=== PATIENT | male | born 1980 | race Caucasian/White ===

== ENCOUNTER 2016-10-11 14:08 | Emergency (ER) | payer OTHER, BC ==
[~2016-10-11] VITALS: Ht 180.3 cm; Wt 100.0 kg
[~2016-10-11 14:08] MED LIST: MULT-506 PO
[2016-10-11 14:11] VITALS: TEMP 36.9; Ht 180.3 cm; Wt 100.0 kg
[2016-10-11] MEDS ORDERED: VALA500T60 PO (14:22)
[2016-10-11] MEDS ORDERED: IBUPROFEN 200 MG TAB PO STA (14:54)
--- NOTE | 2016-10-11 15:48 | EMERGENCY ROOM VISIT NOTE ---
History Report prepared by Gayathri: Lulu Johnson Under the Supervision of: Dr. Osman Mcfarland M.D. First contact with patient: 14:18 Chief Complaint: DIZZY Stated Complaint: HEAD INJURY/ GOLF BALL Nursing Triage Summary: Dizzy after being struck by a golf ball in the back of his head. History of Present Illness The patient is a 36 year old male who presents to the Emergency Room with complaints of an episode of a head injury occurring 1.5 hours [employer]. The patient works on the [place]. He was hit in the left occiput by a golf course. He states that it was a azam-off that traveled about 120-150 yards before hitting the ground once, bouncing, and hitting him in the head. He denies any LOC. The patient states that immediately after the injury he lay flat on the ground with his hands on his head for about 5 minutes. He had throbbing pain in his head. After about 5 minutes he developed dizziness and started to feel "fuzzy and foggy." These symptoms were worsened with movement. He also had some nausea. The patient was brought to the ED by ambulance. Since arriving in the ED his nausea has resolved and his other symptoms have greatly improved. He denies any headache, changes in vision or hearing, abdominal pain, and vomiting. The patient rates his pain as a 2/10 in severity. He does not take any blood thinners. He has a history of 2-3 sports-related concussions from head-on collisions in soccer, with the most recent one occurring in 1998. Source of History: patient Onset: 1.5 hours [employer] AP[employer]ENTICE Position: head Symptom Intensity: 2/10 Quality: other (throbbing) Timing: other (episode) Modifying Factors (Worsening): movement Modifying Factors (Relieving): other (time) Associated Symptoms: + nausea, No LOC, No headache, No vomiting, No abdominal pain Note: Pt notes dizziness. Review of Systems See HPI for pertinent positives and negatives. A total of ten systems were reviewed and were otherwise negative. Past Medical & Surgical Medical Problems: (1) Hx of concussion Family History Diabetes mellitus Social History Smoking Status: Never Smoker Occupation Status: employed Current/Historical Medications Scheduled PRN Valacyclovir (Valtrex), 1 TAB PO BID PRN for COLD SORES Allergies Coded Allergies: Morphine (Verified Adverse Reaction, Unknown, NAUSEA, 2/5/10) Physical Exam Vital Signs Date Time Temp Pulse Resp B/P (MAP) Pulse Ox O2 Delivery O2 Flow Rate FiO2 10/11/16 16:30 68 18 130/90 99 10/11/16 14:39 72 20 122/92 98 Room Air 10/11/16 14:11 36.9 62 20 150/91 99 Room Air Physical Exam GENERAL: Awake, alert, appears moderately uncomfortably but in no acute distress HENT: Normocephalic. Mild tenderness to the left lateral occiput without induration or hematoma. Oropharynx unremarkable. Mucous membranes are dry. EYES: Normal conjunctiva. Sclera non-icteric. NECK: Supple. No nuchal rigidity. FROM. No JVD. RESPIRATORY: Clear to auscultation. CARDIAC: Regular rate, normal rhythm. Extremities warm and well perfused. Pulses equal. ABDOMEN: Soft, non-distended. No tenderness to palpation. No rebound or guarding. No masses. RECTAL: Deferred. MUSCULOSKELETAL: Chest examination reveals no tenderness. The back is symmetrical on inspection without obvious abnormality. There is no CVA tenderness to palpation. No joint edema. LOWER EXTREMITIES: Calves are equal size bilaterally and non-tender. No edema. No discoloration. NEURO: Normal sensorium. No sensory or motor deficits noted. SKIN: No rash or jaundice noted. Medical Decision & Procedures Medications Administered Medications (Trade) Dose Ordered Sig/Toy Route Start Time Stop Time Status Last Admin Dose Admin Ibuprofen (Advil Tab) 800 mg NOW STAT PO 10/11/16 14:54 10/11/16 14:55 DC 10/11/16 15:19 800 MG ED Course 1420: The patient was evaluated in room B2. A complete history and physical exam was performed. 1454: Ibuprofen 800 mg PO 1604: I reassessed the patient at this time. He is feeling better and resting comfortably. I discussed the results and treatment plan with the patient. I answered all pertaining questions that he had. He expressed understanding and verbalized agreement. The patient will be discharged home. Medical Decision I reviewed the patient's past medical history, medications, and the nursing notes as described above. Differential diagnoses includes mild concussion, dehydration, vs less likely intracranial bleed. Patient is a 36-year-old gentleman previously healthy presents to the emergency department after being struck in head with a golf ball after he had bounced from a T-off. Subsequently had headache and nausea but no vomiting. Denies LOC. Arrives to the emergency department uncomfortable appearing but in no acute distress. Afebrile and vital signs stable. Neuro intact. On exam no signs of head trauma such as hematoma or bleeding. Per head CT rule no indication for CT imaging. However discussed with patient and if and offered CT if concerned. She preferred or no imaging and oriented like he was improving. Additionally offered IV hydration for her relief however patient felt he could take oral hydration and oral medication. Considering ICH unlikely in this setting patient given ibuprofen by mouth hydration with improvement in his symptoms. Plan for follow-up [facility]. Concussion instructions given. Patient agreeable with plan and DC'd per [facility]. Impression Primary Impression: Concussion Scribe Attestation The scribe's documentation has been prepared under my direction and personally reviewed by me in its entirety. I confirm that the note above accurately reflects all work, treatment, procedures, and medical decision making performed by me. Departure Information Dispostion Home / Self-Care Referrals Jeyson Petersen M.D. (PCP) Forms HOME CARE DOCUMENTATION FORM, IMPORTANT VISIT INFORMATION, Work Instructions Specific Date : 10/15/2016 Patient Instructions Concussion, My [facility] Additional Instructions Please follow up [facility] your primary care physician and[facility]3 [facility]. Your exam did not show signs of an emergent condition. Ibuprofen or Acetaminophen for pain as needed. Avoid sensory stimulus if you feel your symptoms return and/or worsening. Return to the emergency department for worsening symptoms as described in the accompanying instructions. Work Instructions Specific Date: 10/15/2016 Problem Qualifiers Primary Impression: Concussion Encounter type: initial encounter Loss of consciousness presence/duration: without LOC Qualified Codes: S06.0X0A - Concussion without loss of consciousness, initial encounter
[2016-10-11 16:30] VITALS: BP 130/90; PULSE 68; O2SAT 99
== END 2016-10-11 16:32 | disposition home or self-care (01) ==
LOC: EDBD 14:08 → C.EDB 14:09
DX: S06.0X0A Concussion without loss of consciousness, initial encounter (principal); W21.04XA Struck by golf ball, initial encounter; Z83.3 Family history of diabetes mellitus

== ENCOUNTER → 2017-07-20 | Outpatient (CLI) | payer OTHER ==
[~2017-07-20] MED LIST changes: -MULT-506 PO; +VALA500T60 PO
== END | disposition home or self-care (01) ==
LOC: C.LAB 22:26
DX: Z02.83 Encounter for blood-alcohol and blood-drug test (principal)